=== PATIENT | female | born 1960 | race Two or more races ===

== ENCOUNTER 2016-11-25 10:09 | Emergency (ER) | payer OTHER ==
[2016-11-25 10:17] VITALS: TEMP 98.1; BMI 29.2
--- NOTE | 2016-11-25 10:30 | PDOC ---
Attending Attestation - Resident Resident Name: Tito Matute - ED Attending Attestation I have performed the following: I have examined & evaluated the patient, The case was reviewed & discussed with the resident, I agree w/resident's findings & plan, Exceptions are as noted - HPI HPI: 56 yo F history hypothyroid presents with abrupt onset abdominal pain, N/V/D for past 3 days. She states it started after eating papaya on Friday (it is currently Friday), and since then she has been unable to keep anything down. Diarrhea is watery, brown. Emesis is clear, nonbilious, nonbloody. No prior similar symptoms. No fever, no dysuria. - Physicial Exam PE: GENERAL: Awake, alert, and fully oriented, in no acute distress. Appears uncomfortable. HEAD: No signs of trauma EYES: PERRLA, EOMI, sclera anicteric, conjunctiva clear ENT: Auricles normal inspection, hearing grossly normal, nares patent, oropharynx clear without exudates. Dry mucosa NECK: Normal ROM, supple, no lymphadenopathy, JVD, or masses LUNGS: Breath sounds equal, clear to auscultation bilaterally. No wheezes, and no crackles HEART: Regular rate and rhythm, normal S1 and S2, no murmurs, rubs or gallops ABDOMEN: Soft, diffusely tender, +hyperactive bowel sounds. No guarding, no rebound. No masses EXTREMITIES: Normal range of motion, no edema. No clubbing or cyanosis. No cords, erythema, or tenderness NEUROLOGICAL: Cranial nerves II through XII grossly intact. Normal speech, normal gait SKIN: Warm, Dry, normal turgor, no rashes or lesions noted. - Medical Decision Making Given the duration of symptoms, will draw labs, send UA. Will give IV pain medication and antiemetics, obtain CT a/p to further evaluate- poss pancreatitis , colitis, appendicitis.
--- NOTE | 2016-11-25 10:30 | PDOC ---
History of Present Illness - General Chief Complaint: Pain, Acute Stated Complaint: ABD PAIN Time Seen by Provider: 11/25/16 10:29 - History of Present Illness Initial Comments: 11/25/16 10:50 Ms. Ortzi is year old female with a past medical history of hypothyroidism who presents to the emergency department with 2 days of constant stomach ache, diarrhea, vomiting, and headache. She reports a constant 10/10 pain and says that this started on Friday morning. She vomited up a papaya that she had eaten before her vomit became clear liquid on subsequent emesis instances. At this same time she started having diarrhea with very dark brown loose stools. She reports no relief from alkaseltser. Has no sick contacts or recent travel and has never had this happen before. Post menopausal. The patient endorces headache, nausea, vomiting, diarrhea. Denies chest pain, shortness of breath, and dizziness. Denies fever, chills. Denies dysuria, frequency, urgency and hematuria. Allergies: Penicillins Past surgical history: Unknown heart surgery as a child Social history: Denies drinking / smoking. PMD - Jordyn Macedo in [place] 11/25/16 11:16 11/25/16 16:16 Past History - Past Medical History Allergies/Adverse Reactions: Allergies Allergy/AdvReac Type Severity Reaction Status Date / Time Penicillins Allergy Verified 11/25/16 10:13 Home Medications: Ambulatory Orders Levofloxacin [Levaquin] 750 mg PO DAILY #7 tab MDD 1 per day for 7 days Metronidazole 500 mg PO TID #21 tablet MDD 3 per day for 7 days 11/25/16 Ondansetron HCl [Zofran] 4 mg PO Q6H PRN #20 tablet MDD 4 max per day 11/25/16 Thyroid Disease: Yes (hypo) - Surgical History Cardiac Surgery: Yes (as a child) - Psycho/Social/Smoking Cessation Hx Anxiety: No Suicidal Ideation: No Smoking History: Never smoked Have you smoked in the past 12 months: No Information on smoking cessation initiated: No Hx Alcohol Use: No Drug/Substance Use Hx: No Substance Use Type: None Review of Systems - Review of Systems Comments:: 11/25/16 10:50 GENERAL/CONSTITUTIONAL: No fever or chills. No weakness. HEAD, EYES, EARS, NOSE AND THROAT: No change in vision. No ear pain or discharge. No sore throat. CARDIOVASCULAR: No chest pain or shortness of breath RESPIRATORY: No cough, wheezing, or hemoptysis. GASTROINTESTINAL: Endorses nausea, vomiting, diarrhea consistently over the last 2 days. Vomit is clear, diarrhea dark brown and foul smelling. Endorses significant pain over the last 2 days. GENITOURINARY: No dysuria, frequency, or change in urination. MUSCULOSKELETAL: No joint or muscle swelling or pain. No neck or back pain. SKIN: No rash NEUROLOGIC: No headache, vertigo, loss of consciousness, or change in strength/ sensation. ENDOCRINE: No increased thirst. No abnormal weight change HEMATOLOGIC/LYMPHATIC: No anemia, easy bleeding, or history of blood clots. ALLERGIC/IMMUNOLOGIC: No hives or skin allergy. 11/25/16 11:21 *Physical Exam - Vital Signs Last Vital Signs Temp Pulse Resp BP Pulse Ox 98.1 F 77 18 127/63 100 11/25/16 10:14 11/25/16 10:14 11/25/16 10:14 11/25/16 10:14 11/25/16 10:14 - Physical Exam Comments: 11/25/16 10:50 GENERAL: Awake, alert, and fully oriented, appears in moderate pain HEAD: No signs of trauma, normocephalic, atraumatic EYES: PERRLA, EOMI, sclera anicteric, conjunctiva clear ENT: Auricles normal inspection, hearing grossly normal, nares patent, oropharynx clear without exudates. Moist mucosa NECK: Normal ROM, supple, no lymphadenopathy, JVD, or masses LUNGS: No distress, speaks full sentences, clear to auscultation bilaterally HEART: Regular rate and rhythm, normal S1 and S2, no murmurs, rubs or gallops, peripheral pulses normal and equal bilaterally. ABDOMEN: +Soft but extremely tender, normoactive bowel sounds. Rebound tenderness. No guarding. No masses EXTREMITIES: Normal inspection, Normal range of motion, no edema. No clubbing or cyanosis. NEUROLOGICAL: Cranial nerves II through XII grossly intact. Normal speech, normal gait, no focal sensorimotor deficits SKIN: Warm, Dry, normal turgor, no rashes or lesions noted. 11/25/16 11:16 11/25/16 11:23 ED Treatment Course - LABORATORY CBC & Chemistry Diagram: 11/25/16 11:28 11/25/16 11:28 Medical Decision Making - Medical Decision Making 11/25/16 11:25 Patient presented with reported 10/10 pain and diffuse abdominal tenderness. Cannot localize. Pain does not radiate. Stool reported as greasy and foul smelling. Standard abdominal workup ordered with EKG, CBC, BMP, Lipase, UA. Lipase / labs normal. CT to rule out alternate cause of stomach pain. Otherwise suspect viral cause and will discharge to home care. 11/25/16 13:49 11/25/16 16:16 CT showed inflammation consistent with infection "nondistention of the distal small bowel loops in the right lower abdomen pelvis with suggestion of wall thickening /enteritis, inflammatory versus infection. " Suspect bacterial infection with course. Will send to home care with ABX flagyl and Levo as well as zofran for nausea. 11/25/16 16:23 *DC/Admit/Observation/Transfer Diagnosis at time of Disposition: Diverticulitis Qualifiers: Diverticulitis site: unspecified part of intestinal tract Diverticulitis bleeding: without bleeding Diverticulitis complication: without perforation or abscess Qualified Code(s): K57.92 - Diverticulitis of intestine, part unspecified, without perforation or abscess without bleeding - Discharge Dispostion Disposition: HOME Condition at time of disposition: Improved Admit: No - Prescriptions Prescriptions: Levofloxacin [Levaquin] 750 mg PO DAILY #7 tab MDD 1 per day for 7 days Metronidazole 500 mg PO TID #21 tablet MDD 3 per day for 7 days - Referrals Referrals: Fabby Sorto [Primary Care Provider] - - Patient Instructions Additional Instructions: We apologize you felt ill today. Please take all antibiotics as proscribed plus Zofran for nausea. If any worsening of condition return to ER for further treatment. - Attestations Physician Attestion: 11/25/16 11:24 I, Dr. Tito Matute, attest that this document has been prepared under my direction and personally reviewed by me in its entirety. I further attest, that it accurately reflects all work, treatment, procedures and medical decision -making performed by me. 11/25/16 16:26
[2016-11-25] MEDS ORDERED: ONDANSETRON 4 MG/2 ML VIAL IVPB ONE (11:04)
[2016-11-25] MEDS ORDERED: morphine CARPU-JECT 4 MG/1 ML DISP.SYRIN IVPUSH ONE (11:04)
[2016-11-25] MEDS ORDERED: morphine CARPU-JECT 4 MG/1 ML DISP.SYRIN ONE (11:14)
[2016-11-25] MEDS ORDERED: ONDANSETRON 4 MG/2 ML VIAL ONE (11:15)
[2016-11-25 11:31] LABS: BASOPHIL 1.2 % (0-2.0); EOSINOPHIL 2.7 % (0-4.5); MCH 28.7 pg (25.7-33.7); MCHC 32.9 g/dl (32.0-36.0); MEAN CELL VOLUME 87.3 fl (80-96); MEAN PLT VOLUME 10.3 fl (7.5-11.1); NEUTROPHILS 62.8 % (42.8-82.8); PLATELET COUNT 195 K/MM3 (134-434); RDW 13.8 % (11.6-15.6)
[2016-11-25] MEDS ORDERED: SODIUM CHLORIDE 1,000 ML IV STA (11:58)
[2016-11-25 12:01] LABS: ALBUMIN 3.9 g/dl (3.4-5.0); ALK PHOS 65 U/L (45-117); ANION GAP 8 (8-16); BILIRUBIN,TOTAL 0.5 mg/dL (0.2-1.0); CO2 25 mmol/L (21-32); CREATININE 0.8 mg/dL (0.55-1.02); GLUCOSE,RANDOM 109 mg/dL (74-106); SGOT/AST 14 U/L (15-37); SGPT/ALT 18 U/L (12-78); TOT PROT 7.2 g/dl (6.4-8.2)
[2016-11-25 12:18] LABS: URINE APPEARANCE CLEAR; URINE BILIRUBIN NEGATIVE (NEGATIVE); URINE COLOR YELLOW; URINE GLUCOSE (UA) NEGATIVE (NEGATIVE); URINE KETONE NEGATIVE (NEGATIVE); URINE NITRITE NEGATIVE (NEGATIVE); URINE PROTEIN NEGATIVE (NEGATIVE); URINE UROBILINOGEN NEGATIVE E.U./dl (0.2-1.0)
[2016-11-25 12:22] LABS: URINE BLOOD 1+ (NEGATIVE); URINE LEUK ESTERASE 2+ (NEGATIVE)
[2016-11-25 12:25] LABS: URINE MUCUS RARE; URINE RBC 2 /hpf (0-3); URINE WBC 1 /hpf (3-5)
[2016-11-25] MEDS ORDERED: SODIUM CHLORIDE 500 ML IV STA (12:45)
[2016-11-25] MEDS ORDERED: LEVOFLOXACIN 250 MG TABLET (FP) PO ONE (16:06)
[2016-11-25] MEDS ORDERED: metroNIDAZOLE 500 MG TABLET PO ONE (16:06)
[2016-11-25] MEDS ORDERED: LEVOFLOXACIN 250 MG TABLET (FP) ONE (16:26)
[2016-11-25] MEDS ORDERED: LEVOFLOXACIN 500 MG TABLET (FP) ONE (16:26)
[2016-11-25] MEDS ORDERED: metroNIDAZOLE 250 MG TABLET ONE (16:26)
[2016-11-25 17:32] VITALS: BP 110/56; PULSE 72
== END 2016-11-25 17:32 | disposition home or self-care (01) ==
LOC: JER 10:09
PROC: 3E0337Z Introduction of Electrolytic and Water Balance Substance into Peripheral Vein, Percutaneous Approach (ICD-10-PCS; principal; 2016-11-25)
PROC: 3E033NZ Introduction of Analgesics, Hypnotics, Sedatives into Peripheral Vein, Percutaneous Approach (ICD-10-PCS; 2016-11-25)
PROC: 3E033GC Introduction of Other Therapeutic Substance into Peripheral Vein, Percutaneous Approach (ICD-10-PCS; 2016-11-25)
DX: K57.92 Diverticulitis of intestine, part unspecified, without perforation or abscess without bleeding (principal); E03.9 Hypothyroidism, unspecified
CPT/HCPCS: 36415; 71010-TC; 74177-TC; 80053; 81003; 81015; 83690; 85025; 96361; 96374; 96375; 99282-25